=== PATIENT | female | born 1985 ===

== ENCOUNTER 2019-06-16 10:15 | Emergency (ER) | payer MEDICAID ==
[2019-06-16] MEDS ORDERED: SODIUM CHLORIDE 0.9% 1000 ML 1,000 ML IV ONE (10:39)
[2019-06-16] MEDS ORDERED: ONDANSETRON 4 MG/2 ML INJ IV ONE (10:40)
--- NOTE | 2019-06-16 10:42 | Emergency Department Report ---
ED N/V/D HPI - General Chief complaint: Abdominal Pain Stated complaint: ABD PAIN Time Seen by Provider: 06/16/19 10:39 Source: patient, EMS Mode of arrival: Ambulatory Limitations: No Limitations - History of Present Illness Initial comments: 34-year-old -Surinames[place] female presents to the emergency room for coming in from [facility], [place] for severe abdominal pain and actively nausea and vomiting since this morning. Patient reports her last menstrual period was 06/07/2019. Patient denies any concerns of food poisoning. Patient denies drinking alcohol last night. Patient has no past medical history. MD complaint: nausea, vomiting, abdominal pain -: This morning Description of Vomiting: watery, bilious Associated Abdominal Pain: Yes Location: diffuse Pain Scale: 10 Quality: cramping Consistency: constant - Related Data Previous Rx's Medication Instructions Recorded Last Taken Type Ondansetron [Zofran Odt] 4 mg PO Q8HR #12 tab.rapdis 06/16/19 Unknown Rx Allergies Allergy/AdvReac Type Severity Reaction Status Date / Time morphine Allergy Itching Verified 04/17/13 12:49 ED Review of Systems ROS: Stated complaint: ABD PAIN Other details as noted in HPI Comment: All other systems reviewed and negative Gastrointestinal: abdominal pain, nausea, vomiting. denies: diarrhea, constipation, hematemesis, melena, hematochezia ED Past Medical Hx - Past Medical History Previous Medical History?: Yes - Surgical History Past Surgical History?: Yes Additional Surgical History: x - Social History Smoking Status: Never Smoker Substance Use Type: Alcohol - Medications Home Medications: Home Medications Medication Instructions Recorded Confirmed Last Taken Type Ondansetron [Zofran Odt] 4 mg PO Q8HR #12 tab.rapdis 06/16/19 Unknown Rx ED Physical Exam - General Limitations: No Limitations ED Course Vital Signs 06/16/19 10:18 Temperature 97.6 F Pulse Rate 82 Respiratory 24 Rate Blood Pressure 131/79 O2 Sat by Pulse 99 Oximetry ED Medical Decision Making - Lab Data Result diagrams: 06/16/19 11:56 06/16/19 11:56 - Radiology Data Radiology results: report reviewed Patient: MARILUZ PAVON MR#: [id number] : 1985 Acct:[id number] Age/Sex: 34 / F ADM Date: 06/16/19 Loc: ED Attending Dr: Ordering Physician: TAMIKO MCKEON Date of Service: 06/16/19 Procedure(s): XR abdomen 2V Accession Number(s): [id number] cc: TAMIKO MCKEON Fluoro Time In Minutes: ABDOMEN 2 VIEWS INDICATION / CLINICAL INFORMATION: Unspecified acute abdominal pain with nausea and vomiting. COMPARISON: None available. FINDINGS: TUBES / LINES: None. BOWEL GAS PATTERN: No significant abnormality. FREE AIR / EXTRALUMINAL GAS: None seen. ADDITIONAL FINDINGS: Tubal ligation clips are noted bilaterally. IMPRESSION: No significant abnormality of the abdomen. Signer Name: Gabino Blair MD Signed: 06/16/2019 1:51 PM Workstation Name: [id number] Transcribed By: JOSEY Dictated By: Gabino Blair MD Electronically Authenticated By: Gabino Blair MD Signed Date/Time: 06/16/19 1351 DD/ 1350 TD/TT: - Medical Decision Making 34-year-old -[place] female presents to the emergency room for coming in from [facility] [place] for severe abdominal pain and actively nausea and vomiting since this morning. Patient reports her last menstrual period was 06/07/2019. Patient denies any concerns of food poisoning. Patient denies drinking alcohol last night. Patient has no past medical history. Critical care attestation.: If time is entered above; I have spent that time in minutes in the direct care of this critically ill patient, excluding procedure time. ED Disposition Clinical Impression: Nausea and vomiting in adult patient Disposition: DC-01 TO HOME OR SELFCARE Is pt being admited?: No Does the pt Need Aspirin: No Condition: Stable Instructions: Abdominal Pain (ED) Prescriptions: Ondansetron [Zofran Odt] 4 mg PO Q8HR #12 tab.rapdis Referrals: [facility] [Outside] - 3-5 Days Forms: Work/School Release Form(ED)
[2019-06-16 12:30] LABS: Basophils % (Auto) 0.1 % (0.0-1.8); Hematocrit 35.1 % (30.3-42.9); Hemoglobin 10.8 gm/dl (10.1-14.3); Lymphocytes # (Auto) 0.6 K/mm3 (1.2-5.4); Lymphocytes % (Auto) 6.5 % (13.4-35.0); Mean Corpuscular HGB Conc 31 % (30-34); Mean Corpuscular Volume 71 fl (79-97); Monocytes # (Auto) 0.5 K/mm3 (0.0-0.8); Platelet Count 258 K/mm3 (140-440); Red Blood Count 4.95 M/mm3 (3.65-5.03); Red Cell Distribution Width 16.1 % (13.2-15.2)
[2019-06-16 12:57] LABS: Alanine Aminotransferase 20 units/L (7-56); Albumin 4.1 g/dL (3.9-5); BUN/Creatinine Ratio 11; Blood Urea Nitrogen 8 mg/dL (7-17); Calcium 8.3 mg/dL (8.4-10.2); Hemolysis Index 0
[2019-06-16 13:07] LABS: Bilirubin,Urine NEG (Negative); Blood,Urine SM (Negative); Color,Urine Yellow (Yellow); Mucus,Urine FEW /HPF; Protein,Urine <15 mg/dL mg/dL (Negative); RBC,Urine < 1.0 /HPF (0.0-6.0); Urobilinogen,Urine < 2.0 mg/dL (<2.0); WBC,Urine < 1.0 /HPF (0.0-6.0)
--- NOTE | 2019-06-16 13:56 | XRay Report ---
ABDOMEN 2 VIEWS INDICATION / CLINICAL INFORMATION: Unspecified acute abdominal pain with nausea and vomiting. COMPARISON: None available. FINDINGS: TUBES / LINES: None. BOWEL GAS PATTERN: No significant abnormality. FREE AIR / EXTRALUMINAL GAS: None seen. ADDITIONAL FINDINGS: Tubal ligation clips are noted bilaterally. IMPRESSION: No significant abnormality of the abdomen. Signer Name: Gabino lBair MD Signed: 06/16/2019 1:51 PM Workstation Name: [id number]
[2019-06-16 15:13] VITALS: BP 120/81
== END 2019-06-16 15:12 | disposition home or self-care (01) ==
LOC: ED 10:15
DX: R10.84 Generalized abdominal pain (principal); R11.2 Nausea with vomiting, unspecified; Z98.890 Other specified postprocedural states; Z88.6 Allergy status to analgesic agent; Z79.899 Other long term (current) drug therapy
CPT/HCPCS: 36415; 74019; 80053; 81001; 83690; 84702; 85025; 96361; 96374; 99284; J2405; J7030